=== PATIENT | female | born 1955 | race Caucasian/White ===

== ENCOUNTER 2020-02-11 04:29 | Day surgery (SDC) | payer OTHER ==
--- OUTSIDE RECORDS SUMMARY | 2020-01-27 11:37 | XMS ---
:[address] [facility] Re-disclosure Warning The records that you are about to access may contain information from federally- assisted alcohol or drug abuse programs. If such information is present, then the following federally mandated warning applies: This information has been disclosed to you from records protected by federal confidentiality rules (42 CFR part 2). The federal rules prohibit you from making any further disclosure of this information unless further disclosure is expressly permitted by the written consent of the person to whom it pertains or as otherwise permitted by 42 CFR part 2. A general authorization for the release of medical or other information is NOT sufficient for this purpose. The Federal rules restrict any use of the information to criminally investigate or prosecute any alcohol or drug abuse patient.The records that you are about to access may contain highly sensitive health information, the redisclosure of which is protected by Article 27-F of the [facility] Public Health law. If you continue you may haveaccess to information: Regarding HIV / AIDS; Provided by facilities licensed or operated by the [facility] Office of Mental Health; or Provided by the [facility] Office for People With Developmental Disabilities. If such information is present, then the following [facility] mandated warning applies: This information has been disclosed to you from confidential records which are protected by state law. State law prohibits you from making any further disclosure of this information without the specific written consent of the person to whom it pertains, or as otherwise permitted by law. Any unauthorized further disclosure in violation of state law may result in a fine or retirement sentence or both. A general authorization for the release of medical or other information is NOT sufficient authorization for further disclosure. Results ID Date Data Source [id number] 01/22/2020 02:00:00 PM EDT [facility] Name Value Range Interpretation Description Data Sup porting Code Source(s) Document(s ) SARS [facility] coronavirus 2 RNA This lab was ordered by Aleksey gonzales and reported by [facility]. ID Date Data Source [id number] 12/22/2019 09:02:00 AM EDT [facility] Name Value Range Interpretation Code Description Data Courtney rce(s) Supporting Document(s ) SARS-CoV-2 [facility] Ql GEORGINA+probe This lab was ordered by [facility] a nd reported by [facility]. ID Date Data Source [id number] 10/04/2019 06:30:00 PM EDT [facility] Name Value Range Interpretation Code Description Data Courtney rce(s) Supporting Document(s ) COV2 [facility] This lab was ordered by [facility] and reported by [facility] [place]. Procedure
[2020-02-10 13:12] VITALS: BMI 30.9
--- OUTSIDE RECORDS SUMMARY | 2020-02-11 04:32 | XMS ---
:1955 Author Organization [facility] Support Name Relationship Address Phone OFFICE OF HEARING AND APPEAL Unavailable [address] ( [phone] [place] [address] DANISH AYALA FRIEND [address] [place] [address] Re-disclosure Warning The records that you are [...] is protected by Article 27-F of the [facility] Public Health law. If you continue you may haveaccess to information: Regarding HIV / AIDS; Provided by facilities licensed or operated by the [facility] Office of Mental Health; or Provided by the [facility] Office for People With Developmental Disabilities. If such information is present, then the following [facility] mandated warning applies: This information has been [...] law may result in a fine or chcf sentence or both. A general authorization for the release of medical or other information is NOT sufficient authorization for further disclosure. Insurance Providers Payer name Policy type Policy ID Covered Covered republican's Policy P radhika / Coverage republican ID relationship to [employer] ormation type [employer] GHI PPO [id number] SP [id number] MEDICARE [id number] SP [id number] Results ID Date Data Source [id number] 02/06/2020 01:54:00 PM EDT [facility] Name Value Range Interpretation Description Data Sup porting Code Source(s) Document(s ) SARS [facility] coronavirus 2 RNA This lab was ordered by [facility] and reported by [facility]. ID Date Data Source [id number] 02/04/2020 02:40:00 PM EDT [facility] Name Value Range Interpretation Description Data Sup porting Code Source(s) Document(s ) SARS [facility] coronavirus 2 RNA This lab was ordered by [facility] and reported by [facility]. ID Date Data Source [id number] 01/22/2020 02:00:00 PM EDT [facility] Name Value Range Interpretation Description Data Sup porting Code Source(s) Document(s ) SARS [facility] coronavirus 2 RNA This lab was ordered by Aleksey gonzales and reported by [facility]. ID Date Data Source [id number] 12/22/2019 09:02:00 AM EDT [facility] Name Value Range Interpretation Code Description Data Courtney rce(s) Supporting Document(s ) SARS-CoV-2 [facility] RNA [facility] Ql GEORGINA+probe This lab was ordered by [facility] nd reported by [facility]. ID Date Data Source [id number] 10/04/2019 06:30:00 PM EDT [facility] Name Value Range Interpretation Code Description Data Courtney rce(s) Supporting Document(s ) COV2 [facility] This lab was ordered by [facility] and reported by [facility] Katiana Pan. Procedure
[2020-02-11] MEDS ORDERED: PROPOFOL 20 ML ONE ×3 (07:27→08:06)
[2020-02-11] MEDS ORDERED: SUCCINYLCHOLINE CHLORIDE 200 MG/10 ML SYRINGE ONE (07:28)
[2020-02-11] MEDS ORDERED: MIDAZOLAM HCL 2 MG/2 ML SINGLE DOSE VIAL ONE (07:28)
--- NOTE | 2020-02-11 07:46 | HP ---
History & Physical Update - History History: No Change - Physical Physical: No Change - Assessment Assessment: No Change - Plan Plan: No Change (Consent signed and witnessed, all questions answered)
--- NOTE | 2020-02-11 07:47 | OP ---
Operative Note - Note: Operative Date: 02/11/20 Pre-Operative Diagnosis: 64yo P0 with Thick Endometrium, obesity Operation: Hysteroscopy, Polypectomy, D&C Findings: Small, scared Edometrial cavity, with polyps and fibroids Uterus 5cm Post-Operative Diagnosis: Same as Pre-op Surgeon: Jodee Cerrato Anesthesiologist/METAL NUMERICAL TOOL PROGRAMMER: Nam Trevino Anesthesia: General Specimens Removed: 1. Endometrial polyp. 2. Endometrial curettings Estimated Blood Loss (mls): 5 Instrument used (Debridements only): Symphion Hysteroscope with resectoscope Drains & Tubes with Location: FD - 50cc Drains, Volume Out (mls): 50 Fluid Volume Replaced (mls): 500 Operative Report Dictated: Yes
[2020-02-11] MEDS ORDERED: IBUPROFEN 600 MG TABLET (FP) PO PRN (07:48)
[2020-02-11] MEDS ORDERED: IBUPROFEN 800 MG/8 ML IJ IVPB PRN (07:48)
[2020-02-11] MEDS ORDERED: oxyCODONE HCL 5 MG TABLET PO PRN (07:48)
[2020-02-11] MEDS ORDERED: ONDANSETRON 4 MG/2 ML VIAL IVPUSH PRN (07:48)
[2020-02-11] MEDS ORDERED: ELECTROLYTE-148 SOLN 1,000 ML IV SCH (08:00)
[2020-02-11] MEDS ORDERED: ROCURONIUM BROMIDE 50 MG/5 ML SYRINGE ONE (08:06)
[2020-02-11] MEDS ORDERED: DEXAMETHASONE SOD PHOSPHATE 4 MG/1 ML VIAL ONE (08:07)
[2020-02-11] MEDS ORDERED: KETOROLAC TROMETHAMINE 30 MG/1 ML VIAL ONE (08:07)
[2020-02-11] MEDS ORDERED: LIDOCAINE HCL/PF 2% SDV 5ML VIAL ONE (08:07)
[2020-02-11] MEDS ORDERED: LACTATED RINGERS SOLUTION 1,000 ML IV SCH (09:30)
--- NOTE | 2020-02-11 11:13 | OP ---
DATE OF OPERATION: 02/11/2020 PREOPERATIVE DIAGNOSIS: A 64-year-old para 0 with thickened endometrium and obesity. OPERATION: Hysteroscopy, polypectomy, dilation and curettage. FINDINGS: Small 5 cm scarred uterus, scarred endometrial cavity with polyps and fibroids. POSTOPERATIVE DIAGNOSIS: A 64-year-old para 0 with thickened endometrium and obesity. SURGEON: Jodee Cerrato MD ANESTHESIOLOGIST: Nam Trevino MD ANESTHESIA: General. SPECIMENS REMOVED: 1. Endometrial polyp. 2. Endometrial curettings. DESCRIPTION OF OPERATIVE PROCEDURE: After assuring informed consent, patient was brought to the operating room where she was placed in dorsal lithotomy position. Perineum and vagina were prepped and draped in a sterile fashion. Cytotec was removed from the vagina that was used to prepare and ripen the cervix for the procedure. The Symphion hysteroscope was assembled, white balanced and primed. The Castellanos retractors were placed into the vagina and anterior cervical lip was identified and grasped with single-tooth tenaculum. The gradually increasing in size dilators were used to dilate the cervical os. The sharp curettage was performed first and subsequently the 6.3-mm Symphion hysteroscope was introduced into the uterine cavity. The resectoscope was also introduced through the operative channel and the endometrial polyp was resected as well as additional endometrial curettings. No suspicious lesions were identified. All specimens were sent for pathology. Subsequently all the instruments were removed from the uterus, cervix and vagina. Excellent hemostasis was achieved. Estimated blood loss was 5 mL. Patient received 500 mL of IV fluids and drained 50 mL of urine. Fluid deficit was found to be 50 mL. All sponge and instrument count was correct x2. Patient was brought to the recovery room in stable condition. Raina [id number]
[2020-02-11 11:25] VITALS: PULSE 78; TEMP 97.8
[2020-02-11 12:51] VITALS: BP 130/68
--- NOTE | 2020-02-12 17:27 | PATH ---
Surgical Pathology Report Patient Name: GINNY DUNAWAY [facility]. Rec. #: [id number] /Age/Gender: 1955 (Age: 64) / F Account: [id number] Location: [facility] SURGICAL Taken: 02/11/2020 Received: 02/11/2020 Reported: 02/12/2020 Physicians: Jodee Cerrato M.D. Specimen(s) Received A: ENDOMETRIAL CURETTINGS B: ENDOMETRIAL POLIP Clinical History Thickened endometrium Final Diagnosis A. ENDOMETRIAL CURETTINGS: FRAGMENTS OF ENDOMETRIAL POLYP. SEPARATE FRAGMENTS OF SMOOTH MUSCLE BUNDLES, MAY REPRESENT SUBMUCOSAL LEIOMYOMA IN THE PROPER CLINICAL SETTING. SEPARATE UNREMARKABLE ENDOCERVICAL TISSUE AND SQUAMOUS EPITHELIUM. B. ENDOMETRIAL POLYP, POLYPECTOMY: FRAGMENTS OF ENDOMETRIAL POLYP. Electronically Signed Brady Mcgregor M.D. Gross Description A. Received in formalin labeled "endometrial curetting," is a 1.9 x 1.4 x 0.3 cm aggregate of bonilla soft tissue fragments. The formalin is filtered and the specimen is entirely submitted in one cassette. B. Received in formalin labeled "endometrial polyp," is a 0.7 x 0.5 x 0.2 cm aggregate of bonilla-brown soft tissue fragments. The formalin is filtered and the specimen is entirely submitted in one cassette. /02/11/2020 [facility]/02/11/2020
== END 2020-02-11 12:30 | disposition home or self-care (01) ==
LOC: JASU-SURG 04:29
PROVIDERS: ATTEND Obstetrics & Gynecology
PROC: 0UB98ZX Excision of Uterus, Via Natural or Artificial Opening Endoscopic, Diagnostic (ICD-10-PCS; principal; 2020-02-11 07:30)
PROC: 0UDB8ZX Extraction of Endometrium, Via Natural or Artificial Opening Endoscopic, Diagnostic (ICD-10-PCS; 2020-02-11 07:30)
DX: R93.89 Abnormal findings on diagnostic imaging of other specified body structures (principal); N84.0 Polyp of corpus uteri
CPT/HCPCS: 88305-TC; 94760

== ENCOUNTER → 2023-10-23 | Day surgery (SDC) | payer OTHER, BC ==
[2023-10-16 15:13] VITALS: BMI 30.7
[~2023-10-23] MED LIST: ACETAMINOPHEN 325 MG TABLET (FP) PO PRN; ACETYLCHOLINE 1:100 INTRA-OCUL 20 MG/2 ML KIT ONE; BETAXOLOL HCL 0.25% OPHTHALMIC 10 ML DROPSBTL ONE; CYCLOPENTOLATE HCL 1% OPHTH SOLN 2 ML BOTTLE ONE; KETOROLAC TROMETHAMINE 0.5% EYE DROP 1 DROP DROPS ONE; MIDAZOLAM HCL 2 MG/2 ML SINGLE DOSE VIAL ONE; NEO/POLYMYX B SULF/DEXAMETH OPHTHALMIC 5ML BOTTLE ONE; NEOMY SULF/BACITRA/POLYMYXIN B OPHTHALMIC OINTMENT 3.5 GM ONE; OFLOXACIN 0.3% OPHTHALMIC SOLUTION 5 ML BOTTLE ONE; PHENYLEPHRINE 2.5% OPTHALMIC DROP 2ML BOTTLE ONE; POVIDONE-IODINE 5% OPHTHALMIC PREP 30 ML SOLUTION ONE; TETRACAINE 0.5% OPHTH SOLN 2 ML BOTTLE ONE; TROPICAMIDE 1% OPHTH SOLN 15 ML BOTTLE ONE
[2023-10-23 09:27] VITALS: RESP 18
[2023-10-23] MEDS: PHENYLEPHRINE 2.5% OPHTH SOLN 15 ML BOTTLE OS SCH (09:30)
[2023-10-23] MEDS: CYCLOPENTOLATE HCL 1% OPHTH SOLN 2 ML BOTTLE OS SCH (09:30)
[2023-10-23] MEDS: TROPICAMIDE 1% OPHTH SOLN 15 ML BOTTLE OS SCH (09:30)
[2023-10-23] MEDS: KETOROLAC TROMETHAMINE 0.5% EYE DROP 1 DROP DROPS OS SCH (09:30)
[2023-10-23] MEDS: OFLOXACIN 0.3% OPHTHALMIC SOLUTION 5 ML BOTTLE OS SCH (09:30)
[2023-10-23 11:25] VITALS: TEMP 97.3
[2023-10-23 11:49] VITALS: BP 135/69; PULSE 87
== END | disposition home or self-care (01) ==
LOC: FASU 08:55
PROVIDERS: ATTEND Ophthalmology
PROC: 08RK3JZ Replacement of Left Lens with Synthetic Substitute, Percutaneous Approach (ICD-10-PCS; principal; 2023-10-23 10:36)
DX: H25.12 Age-related nuclear cataract, left eye (principal)
CPT/HCPCS: 66984; V2632

== ENCOUNTER → 2023-11-13 | Day surgery (SDC) | payer OTHER, BC ==
[2023-11-08 10:33] VITALS: BMI 30.7
[~2023-11-13] MED LIST changes: -ACETYLCHOLINE 1:100 INTRA-OCUL 20 MG/2 ML KIT ONE; +BACITRACIN/POLYMYXIN OPH OINT 3.5 GM TUBE ONE; +BSS (NA/CA/MG/K) BALANCED SALT SOLUTION OPHTH SOLN 15 ML BOTTLE ONE; +EPI-SHUGARCAINE (EPINEPHRINE 0.025% & LIDOCAINE-PF 0.75%) 4ML ONE; +EPINEPHrine/PF 1 MG/1 ML (1:1,000) AMPULE ONE; -NEOMY SULF/BACITRA/POLYMYXIN B OPHTHALMIC OINTMENT 3.5 GM ONE; +ONDANSETRON 4 MG/2 ML VIAL ONE
[2023-11-13] MEDS: PHENYLEPHRINE 2.5% OPHTH SOLN 15 ML BOTTLE OD SCH (08:40)
[2023-11-13] MEDS: TROPICAMIDE 1% OPHTH SOLN 15 ML BOTTLE OD SCH (08:40)
[2023-11-13] MEDS: OFLOXACIN 0.3% OPHTHALMIC SOLUTION 5 ML BOTTLE OD SCH (08:40)
[2023-11-13] MEDS: KETOROLAC TROMETHAMINE 0.5% EYE DROP 1 DROP DROPS OD SCH (08:40)
[2023-11-13] MEDS: CYCLOPENTOLATE HCL 1% OPHTH SOLN 2 ML BOTTLE OD SCH (08:40)
[2023-11-13 10:32] VITALS: BP 134/68; PULSE 78; RESP 20; TEMP 96.8
== END | disposition home or self-care (01) ==
LOC: FASU 08:22
PROVIDERS: ATTEND Ophthalmology
PROC: 08RJ3JZ Replacement of Right Lens with Synthetic Substitute, Percutaneous Approach (ICD-10-PCS; principal; 2023-11-13 10:00)
DX: H25.11 Age-related nuclear cataract, right eye (principal)
CPT/HCPCS: 66984; V2632